=== PATIENT | male | born 1945 | race Caucasian/White ===

== ENCOUNTER → 2018-03-24 11:09 | Outpatient (CLI) | payer MEDICARE, SELFPAY ==
--- NOTE | 2018-03-24 | DI.RAD.S_ITS ---
PROCEDURE: XR CHEST 2V INDICATIONS: 72 year-old male with chronic cough. TECHNIQUE: 2 views of the chest were acquired. COMPARISON: [facility], CHEST 2 VIEW, 09/15/2017, 10:41. [facility], CHEST 2 VIEW, 02/25/2017, 14:47. [facility], CHEST 2 VIEW, 07/25/2009, 17:01. FINDINGS: Surgical changes and devices: None. Lungs and pleura: No pleural effusions or pneumothorax. Lungs are clear. Mediastinum: Mediastinal contours are normal. Heart size is normal. Bones and chest wall: No suspicious bony abnormalities. There is thoracic spine disc degeneration. Soft tissues appear unremarkable. IMPRESSION: No radiographic explanation for chronic cough. Dictated by: Enmanuel Regan M.D. on 03/24/2018 at 11:47 Approved by: Enmanuel Regan M.D. on 03/24/2018 at 11:48
== END ==
PROVIDERS: Family Provider Family Medicine; PCP Family Medicine; Visit Provider Family Medicine
DX: R05 Cough (principal)
CPT/HCPCS: 71046

== ENCOUNTER → 2018-04-02 11:07 | Outpatient (CLI) | payer MEDICARE, SELFPAY ==
--- NOTE | 2018-04-02 | DI.CT.S_ITS ---
PROCEDURE: CT CHEST W CON INDICATIONS: REACTIVE AIRWAY DISEASE/DYSPNEA TECHNIQUE: After the administration of intravenous contrast, 5 mm thick sections acquired from the pulmonary apices to the posterior costophrenic angles. 7 mm thick coronal and sagittal MIP reformats were acquired. For radiation dose reduction, the following was used: automated exposure control, adjustment of mA and/or kV according to patient size. COMPARISON: [facility], CT, KIDNEY/ URETER/BLADDER, 08/13/2017, 13:45. FINDINGS: Image quality: Excellent. Lungs and pleura: No acute consolidation. There is an ill-defined 4 mm nodule seen on image 32 series 3 in the left fissure which is indeterminate. Sub-3 mm groundglass appearing nodules seen in the left lung image 39 series 3 and right middle lobe and image 43 series 3 which are probably post inflammatory. There is scattered dependent atelectasis and scarring. Mild central bronchial wall thickening. No pleural effusions or pneumothorax. Central and peripheral airways are patent and normal in caliber. Mediastinum: Heart size is enlarged. Coronary artery calcifications are present. No pericardial effusion. No mediastinal or hilar adenopathy by size criteria. Thoracic aorta and central pulmonary arteries are normal in size. Esophagus is normal in caliber. No hiatal hernia. Bones and chest wall: No suspicious bony lesions. No vertebral body compression fractures. No axillary or supraclavicular adenopathy by size criteria. Thyroid gland negative. Abdomen: Large amount of debris is seen within the stomach. IMPRESSION: Nonspecific left fissural 4 mm pulmonary nodule, indeterminate. If clinically warranted, a followup chest CT in one year could be performed to document long-term stability. No acute consolidation. Central bronchial wall thickening which can be seen in the setting of reactive airways disease or nonspecific bronchitis. Cardiomegaly and coronary artery disease. Dictated by: Chivo Ahuja M.D. on 04/02/2018 at 13:32 Approved by: Chivo Ahuja M.D. on 04/02/2018 at 13:41
[2018-04-02 11:34] LABS: BUN Creatinine Ratio 24.3 (6-22); Blood Urea Nitrogen 17 mg/dL (9-20); Estimated Glomerular Filt Rate > 60.0 mL/min (>60)
== END ==
PROVIDERS: Family Provider Family Medicine; PCP Family Medicine; Visit Provider Family Medicine
DX: R06.00 Dyspnea, unspecified (principal); J45.909 Unspecified asthma, uncomplicated; R91.1 Solitary pulmonary nodule; I25.10 Atherosclerotic heart disease of native coronary artery without angina pectoris; I51.7 Cardiomegaly; R63.4 Abnormal weight loss
CPT/HCPCS: 36415; 71260; 82565; 84520; Q9967

== ENCOUNTER 2018-07-01 14:00 | Outpatient (RCR) | payer MEDICARE, SELFPAY | END 2018-07-05 14:13 | LOC: CAR 14:00 | PROVIDERS: Family Provider Family Medicine; PCP Family Medicine; Visit Provider Family Medicine | DX: I20.9 Angina pectoris, unspecified (principal) | CPT/HCPCS: 93798 ==

== ENCOUNTER → 2018-08-13 11:02 | Outpatient (CLI) | payer MEDICARE, SELFPAY ==
--- NOTE | 2018-08-17 15:10 | PM.PFT.1 ---
Pulmonary Function Test Referral & Results Date Patient Seen: 08/13/18 Requesting provider: Luis Lemos Indication: Amiodarone therapy Results: The spirometry demonstrates an FVC of 5.20 L which is 180% of predicted. The FEV1 was measured at 3.91 L which is 121% of predicted. The FEV1/FVC ratio was 75 which is 102% of predicted. Following the administration of bronchodilator there was no appreciable change in above normal numbers. Lung volumes show an SVC of 5.30 L which is 116% of predicted. The diffusing capacity was measured at 27.45 which is 84% of predicted. The maximum voluntary ventilation was normal Interpretation: Study demonstrates probably normal pulmonary function. Spirometry certainly normal. There may be a slight decline in diffusing capacity although since no hemoglobin was provided, cannot be sure patient was not anemic To PFTs performed in March 2016, spirometry is unchanged but diffusing capacity has decreased from 40.93 in 2016 currently 27.45 Clinical correlation suggested, but this would suggest some increasing disease at the capillary alveolar level.
== END ==
PROVIDERS: PCP Family Medicine; Visit Provider Internal Medicine Cardiovascular Disease
DX: R06.09 Other forms of dyspnea (principal); I48.0 Paroxysmal atrial fibrillation
CPT/HCPCS: 94010; 94060; 94726; 94729

== ENCOUNTER → 2018-09-23 16:36 | Outpatient (CLI) | payer MEDICARE, SELFPAY ==
--- NOTE | 2018-09-23 | DI.RAD.S_ITS ---
PROCEDURE: XR CHEST 2V INDICATIONS: COUGH TECHNIQUE: 2 views of the chest were acquired. COMPARISON: [facility], CR, XR CHEST 2V, 03/24/2018, 10:56. FINDINGS: Surgical changes and devices: None. Lungs and pleura: No pleural effusions or pneumothorax. Lungs are clear. Mediastinum: Mediastinal contours are normal. Heart size is normal. Bones and chest wall: No suspicious bony abnormalities. Lateral curvature of the spine and discogenic changes. Soft tissues appear unremarkable. IMPRESSION: No acute disease. Dictated by: Chivo Ahuja M.D. on 09/23/2018 at 17:00 Approved by: Chivo Ahuja M.D. on 09/23/2018 at 17:01
== END ==
PROVIDERS: PCP Family Medicine; Visit Provider Family Medicine
DX: R05 Cough (principal)
CPT/HCPCS: 71046

== ENCOUNTER → 2018-11-05 13:03 | Outpatient (CLI) | payer MEDICARE, SELFPAY ==
--- NOTE | 2018-11-05 | DI.US.S_ITS ---
PROCEDURE: US SCROTUM INDICATIONS: RIGHT SCROTAL MASS TECHNIQUE: Real-time scanning was performed of the scrotum and testicles, with image documentation. Color and pulse Doppler interrogation was performed of both testicles. COMPARISON: None. FINDINGS: Right: Testicle is normal in size at 3.9 x 2.7 x 3.0 cm, and homogenous in echotexture. Epididymis is normal in overall size and morphology. Moderate hydrocele.. Overlying scrotal skin is normal in thickness. Left: Testicle is normal in size at 3.4 x 2.5 x 3.0 cm, and homogeneous in echotexture. Epididymis is normal in overall size and morphology. Trace left hydrocele. No varicoceles. Overlying scrotal skin is normal in thickness. Doppler: Color and pulse Doppler demonstrate normal and symmetric arterial flow in both testicles. IMPRESSION: Bilateral hydroceles, right greater than left otherwise normal appearance of the testicles bilaterally. Dictated by: Parth KONG Interpreted: Diallo Olivia MD on 11/05/2018 at 14:42 Approved by: Diallo Olivia M.D. on 11/05/2018 at 17:18
== END ==
PROVIDERS: PCP Family Medicine; Visit Provider Family Medicine
DX: N50.9 Disorder of male genital organs, unspecified (principal); N43.3 Hydrocele, unspecified
CPT/HCPCS: 76870

== ENCOUNTER → 2019-04-21 10:13 | Outpatient (CLI) | payer MEDICARE, SELFPAY ==
--- NOTE | 2019-04-21 10:27 | DI.CT.S_ITS ---
PROCEDURE: CT CHEST WO CON INDICATIONS: LUNG NODULE FOLLOW UP TECHNIQUE: Noncontrast 2.0-2.5 mm thick sections acquired from the pulmonary apices to the posterior costophrenic angles. 7 mm thick coronal and sagittal MIP reformats were then acquired. A low radiation dose technique was utilized. COMPARISON: [facility], CT, CT CHEST W CON, 04/02/2018, 13:51. FINDINGS: Image quality: Diagnostic, given the low radiation dose technique. Lungs and pleura: The right major fissure on plus nodule seen on the last exam is no longer visualized. There is a new 7 mm ground glass density in the right lower lobe (series 4 image 228). The 3 mm groundglass nodule in the left lower lobe is more solid in density but stable in size. Mediastinum: Heart size is normal. No pericardial effusion. There is coronary artery calcification consistent with atherosclerosis. No mediastinal adenopathy by size criteria. Thoracic aorta and central pulmonary arteries are normal in size. Esophagus is normal in caliber. No hiatal hernia. Bones and chest wall: No suspicious bony lesions. No vertebral body compression fractures. No axillary or supraclavicular adenopathy by size criteria. Thyroid gland is normal. Abdomen: Visualized upper abdomen solid organs and bowel loops appear normal in the absence of contrast. IMPRESSION: 1. Interval resolution of ground glass nodule right major fissure. 2. New 7 mm groundglass nodule in the right lower lobe. A six-month followup CT suggested. Please see enclosed followup recommendation. 3. Stable in size of 3 mm nodule in the left lower lobe. This nodule is has increased in density and now solid in appearance. Fleischner Society criteria for SUB-SOLID lung nodule followup. Solitary pure ground-glass nodules<6 mm (ground glass or part solid)No followup needed. 6 mm or larger (ground glass)CT at 6-12 months to confirm persistence, then CT every 2 years until 5 years.6 mm or larger (part solid)CT at 3-6 months to confirm persistence, then annual CT until 5 years if unchanged and solid component remains <6 mm. Multiple sub-solid nodules<6 mmCT at 3-6 months, then CT consider at 2 & 4 years for high risk patients. [address] at 3-6 months. Subsequent management based on most suspicious lesions. Recommendations do not apply to lung cancer screening, patients with immunosuppression, or patients with known primary cancer. Dictated by: Toro Dia M.D. on 04/21/2019 at 17:17 Approved by: Toro Dia M.D. on 04/21/2019 at 17:26
== END ==
PROVIDERS: PCP Family Medicine; Visit Provider Family Medicine
DX: R91.8 Other nonspecific abnormal finding of lung field (principal)
CPT/HCPCS: 71250

== ENCOUNTER → 2019-11-02 10:09 | Outpatient (CLI) | payer MEDICARE, SELFPAY ==
--- NOTE | 2019-11-02 | DI.RAD.S_ITS ---
PROCEDURE: XR CERVICAL SPINE 4V OR 5V INDICATIONS: NECK PAIN/RIGHT SHOULDER PAIN TECHNIQUE: 5 views of the cervical spine were acquired. COMPARISON: None. FINDINGS: Bones: No fractures or dislocations to the T1 level. No suspicious bony lesions. There is normal range of motion between flexion and extension, with preserved normal bony alignment. C5-6 moderately severe degenerative disc disease without subluxation. Soft tissues: Prevertebral soft tissues are normal in thickness. IMPRESSION: No subluxation found. Moderately severe C5-6 degenerative disc disease is present to the degree that spinal and foraminal stenosis at this level would be suspected. Dictated by: Alfonso Garcia M.D. on 11/02/2019 at 11:58 Approved by: Alfonso Garcia M.D. on 11/02/2019 at 12:00
--- NOTE | 2019-11-02 | DI.RAD.S_ITS ---
PROCEDURE: XR SHOULDER RT MIN 2V INDICATIONS: NECK PAIN/RIGHT SHOULDER PAIN TECHNIQUE: 3 views of the shoulder were acquired. COMPARISON: None. FINDINGS: Bones: No fractures or dislocations. No suspicious bony lesions. Visualized ribs appear intact. Soft tissues: No suspicious soft tissue calcifications. IMPRESSION: Mild osteoarthritis right acromioclavicular joint. Dictated by: Alfonso Garcia M.D. on 11/02/2019 at 12:00 Approved by: Alfonso Garcia M.D. on 11/02/2019 at 12:00
== END ==
PROVIDERS: PCP Family Medicine; Visit Provider Family Medicine
DX: M50.322 Other cervical disc degeneration at C5-C6 level (principal); M25.511 Pain in right shoulder; M19.011 Primary osteoarthritis, right shoulder
CPT/HCPCS: 72050; 73030

== ENCOUNTER → 2025-04-11 14:20 | Outpatient (CLI) | payer MEDICARE, SELFPAY ==
--- NOTE | 2025-04-11 14:24 | DI.RAD.S_ITS ---
PROCEDURE: XR CHEST 2V INDICATIONS: DYSPNEA ON EXERTION TECHNIQUE: 2 views of the chest were acquired. COMPARISON: [facility], CR, XR CHEST 2V, 09/23/2018, 16:39. [facility], CR, XR CHEST 2V, 03/24/2018, 10:56. FINDINGS: Surgical changes and devices: None. Lungs and pleura: Lungs are clear. No pleural effusions or pneumothorax. Mediastinum: Mediastinal contours are normal. Heart size is normal. Bones and chest wall: No suspicious bony abnormalities. Soft tissues appear unremarkable. IMPRESSION: No acute cardiopulmonary abnormality is seen. Dictated by: Thomas Osborne M.D. on 04/11/2025 at 17:19 Approved by: Thomas Osborne M.D. on 04/11/2025 at 17:21
== END ==
PROVIDERS: PCP Family Medicine; Referring Provider Family Medicine; Visit Provider Family Medicine
DX: R06.09 Other forms of dyspnea (principal)
CPT/HCPCS: 71046

== ENCOUNTER → 2025-07-05 | Outpatient (CLI) | payer MEDICARE, SELFPAY | LOC: NUCM 09:25 | PROVIDERS: PCP Family Medicine; Referring Provider Family Medicine; Visit Provider Family Medicine | DX: I10 Essential (primary) hypertension (principal); R06.09 Other forms of dyspnea | CPT/HCPCS: 78452; 93017; A9502 ==

== ENCOUNTER → 2025-07-06 16:20 | Outpatient (CLI) | payer MEDICARE, SELFPAY | PROVIDERS: PCP Family Medicine; Referring Provider Family Medicine; Visit Provider Family Medicine | DX: R06.09 Other forms of dyspnea (principal); Z87.891 Personal history of nicotine dependence | CPT/HCPCS: 94060; 94726; 94729 ==

== ENCOUNTER → 2025-07-12 14:57 | Outpatient (CLI) | payer MEDICARE, SELFPAY ==
--- NOTE | 2025-07-12 14:58 | DI.CT.S_ITS ---
PROCEDURE: CT CHEST W CON INDICATIONS: DYSPNEA TECHNIQUE: After the administration of intravenous contrast, 5 mm thick sections acquired from the pulmonary apices to the posterior costophrenic angles. 1 mm axial lung, 5 mm thick coronal and sagittal reformats and 7 mm axial MIP were acquired. For radiation dose reduction, the following was used: automated exposure control, adjustment of mA and/or kV according to patient size. COMPARISON: [facility], CT, CT CHEST WO CON, 04/21/2019, 10:19. FINDINGS: Image quality: Diagnostic. Lower Neck: No enlarged lymph nodes. Thyroid: No thyroid nodules which require sonographic follow up, per consensus guidelines. Axillae: No enlarged lymph nodes. Chest Wall: Unremarkable. Bones: Unremarkable. Lungs and Pleura: No pneumothorax or pleural effusions. Bilateral calcified and noncalcified pulmonary micro nodules for which no follow-up is recommended according to consensus guidelines. No consolidation. Heart: Heart size is normal. No pericardial effusion. Thoracic Vessels: The aorta and pulmonary arteries demonstrate normal size. Mediastinum and [place]: No enlarged lymph nodes. Esophagus: No wall thickening. No hiatal hernia. Upper Abdomen: Visualized upper abdomen solid organs and bowel loops appear normal. IMPRESSION: Pulmonary micronodules which may be sequelae of granulomatous disease. No follow-up recommended per consensus guidelines. Dictated by: Sanjeev Encinas M.D. on 07/13/2025 at 9:15 Approved by: Sanjeev Encinas M.D. on 07/13/2025 at 9:22
--- NOTE | 2025-07-12 17:46 | DI.NM.S_ITS ---
DATE OF SERVICE: EXERCISE PERFUSION STUDY 07/12/2025 INDICATIONS: Dyspnea with exertion, hypertension. RADIOPHARMACEUTICAL: 26.0 millicurie technetium-99m Myoview IV was injected at stress and 25.9 millicurie technetium-99m Myoview IV was injected at rest. CARDIAC STRESS: The patient underwent exercise perfusion study under the supervision of an attending staff. The patient walked on Demetris protocol for 7 minutes and achieved maximum heart rate of 171 which was 120% of target heart rate. Resting blood pressure 132/98 and peak blood pressure 170/106. Baseline rhythm atrial flutter with controlled ventricular rate. During stress, the patient remained in Aflutter with fast ventricular rate with nonspecific ST-T changes. The patient has intermittent PVCs including ventricular couplet and one ventricular triplet without any sustained ventricular tachycardia. No chest pain. Had shortness of breath. Oxygen saturation 96% at peak exercise. Normal recovery with slowing of ventricular rate. RAW DATA: There is increased subdiaphragmatic activity. GATED STUDY: Stress LV ejection fraction 68% without any obvious wall motion abnormalities. Resting end-diastolic volume 71 mL. TID ratio 1.00, which is within normal limits. MYOCARDIAL PERFUSION SCAN: Stress supine, resting supine, and stress prone images were compared to each other. Stress supine, resting supine images revealed small size, mildly decreased perfusion of inferior wall extending into the inferior septum and inferior apex which got completely resolved. However, during stress prone images, there is a new mildly decreased perfusion of distal anterior wall. However, it was not seen during stress supine images. CONCLUSION: I will call this study likely a normal myocardial perfusion study with evidence of diaphragmatic tissue attenuation artifact, which got resolved during stress prone images. During stress prone images, there is a new small size, mildly decreased perfusion of distal anterior wall. However, it was not evident during stress supine images. Likely shifting tissue attenuation artifact. No regional wall motion abnormality in those segments. Fair exercise tolerance. Underlying rhythm atrial flutter, during exercise RVR with decrease in heart rate during recovery. Hypertensive blood pressure response. No chest pain. Overall low risk perfusion scan. Findings were discussed with ordering physician Dr. Finesse Moore. Cory Sexton - SANTI/greg/XAVIER doc#: [id number]/job#: [id number] dd: 07/12/2025 17:29:00 dt: 07/12/2025 17:36:00 DICTATING MD/COPIES TO: Tono Lee MD COPIES MNE: PATRICIA;
== END ==
LOC: NUCM 14:58
PROVIDERS: PCP Family Medicine; Referring Provider Family Medicine; Visit Provider Family Medicine
DX: R06.09 Other forms of dyspnea (principal); I10 Essential (primary) hypertension
CPT/HCPCS: 71260; Q9967

== ENCOUNTER → 2025-10-03 08:01 | Outpatient (CLI) | payer MEDICARE, SELFPAY ==
--- NOTE | 2025-10-03 08:02 | DI.ECHO.S_ITS ---
[place] +---------+ [facility] : : [id number] : [place] : : [id number] : : Phone: [phone] Echocardiogram Report + + :Name: ANTHONY NAPOLES Study Date: 10/03/2025 Height: 69 in : :[facility] ReadingLocation: Weight: 170 lb : : Gender: Male BSA: 1.9 m2 : :: 1945 Age: 80 yrs BP: 157/97 mmHg: :Reason For Study: ATRIAL FLUTTER : :Ordering Physician: JUAN C, : :MIHIR Performed By: Smith Cleaning : :Referring: MIHIR IRIZARRY : + + Interpretation Summary 1) Normal left ventricular thickness, size, wall motion, and systolic function (EF 60-65%). 2) Upper normal right ventricular size with normal function. 3) There is mild aortic stenosis (valve area 1.9cm2, mean gradient 7.5mmHG, severity ratio 0.54). 4) There is mild mitral regurgitation. 5) Compared to the echo done 10/20/2019, mild aortic stenosis is present on this study. Procedure: A two-dimensional transthoracic echocardiogram with color flow and Doppler was performed. The study quality was technically good. Comparison is made with the echocardiogram of 10/20/2019. The patient was in atrial flutter with heart rates between 52-84 bpm during the exam. Left Ventricle: The left ventricle is normal in size. Left ventricular wall thickness is mildly increased. There is no ventricular septal defect visualized. The ejection fraction is estimated to be 55-60%. There are no focal wall motion abnormalities. Right Ventricle: The right ventricle is at the upper limits of normal in size. The right ventricular systolic function is normal. Atria: The left atrium is severely dilated. The right atrium is mildly dilated. There is no Doppler evidence for an interatrial shunt. Mitral Valve: The mitral valve leaflets appear mildly thickened. There is mild mitral annular calcification. There is mild mitral regurgitation. Aortic Valve: The aortic valve is trileaflet. The aortic valve opens well. The aortic valve is slightly calcified. There is mild aortic stenosis. No aortic regurgitation is present. Tricuspid Valve: The tricuspid valve leaflets are thin and pliable. There is trace tricuspid regurgitation. Pulmonary artery pressures cannot be estimated because of the lack of a measurable TR jet velocity. Pulmonic Valve: The pulmonic valve is not well seen, but is grossly normal. There is mild pulmonic regurgitation. Great Vessels: The aortic root is normal size. The dimensions of the ascending aorta are normal. The pulmonary artery is normal size. The IVC is dilated (diameter is greater than 2.1 cm) yet it collapses greater than 50% with a sniff. This suggests a right atrial pressure of 8 mm Hg. Pericardium/ Pleura There is no pericardial effusion. There is no pleural effusion. MMode/2D Measurements & Calculations LVIDd: 4.3 cm LVOT diam: 2.1 cm LVIDs: 3.2 cm Ao root diam: 3.4 cm FS: 26.8 % asc Aorta Diam: 3.1 cm EPSS: 0.83 cm IVSd: 1.1 cm LVPWd: 1.1 cm LV whittington. diameter/BSA (cm/m^2): 2.2 LV sys. diameter/BSA (cm/m^2): 1.6 LA A2 area: 33.2 cm2 RA long axis: 5.1 cm LA A4 area: 30.6 cm2 RA area: 17.9 cm2 LA length (vol): 6.5 cm RA vol: 53.2 ml LA vol: 133.4 ml RA : 27.6 ml/m2 LA vol index: 69.2 ml/m2 IVC diam: 2.3 cm RVD1 (basal): 4.2 cm RVD2 (mid): 2.7 cm TAPSE: 2.2 cm Doppler Measurements & Calculations Ao V2 max: 182.3 cm/sec LVOT Max Jez: 93.8 cm/sec Ao V2 mean: 127.7 cm/sec LV V1 max P.5 mmHg Ao max P.3 mmHg LV V1 VTI: 22.4 cm Ao mean P.5 mmHg MUNDO(I,D): 1.9 cm2 Ao V2 VTI: 41.3 cm MUNDO(V,D): 1.8 cm2 sev ratio: 0.54 MUNDO indexed to BSA (cm^2/m^2): 1.0 MV E max jez: 109.8 cm/sec TR max jez: 311.3 cm/sec MV A max jez: 16.8 cm/sec TR max P.8 mmHg MV E/A: 6.5 PA V2 max: 105.1 cm/sec Med Peak E' Jez: 7.2 cm/sec PA V2 mean: 72.6 cm/sec E/E' med: 15.3 PA mean P.3 mmHg Lat Peak E' Jez: 11.9 cm/sec PA pr(Accel): 67.0 mmHg E/E' lat: 9.2 E/e' average: 12.3 MV dec time: 0.13 sec SV(OT): 80.3 ml Reading Physician:12:22 PM
== END ==
LOC: ECHO 08:02
PROVIDERS: PCP Family Medicine; Referring Provider Family Medicine; Visit Provider Family Medicine
DX: I48.3 Typical atrial flutter (principal); I08.0 Rheumatic disorders of both mitral and aortic valves
CPT/HCPCS: 93306